=== PATIENT | female | born 1990 | race African-American/Black ===

== ENCOUNTER 2016-09-10 15:38 | Emergency (ER) | payer OTHER ==
[2016-09-10 15:42] VITALS: BP 110/66; PULSE 65; TEMP 97.9; BMI 22.6
--- NOTE | 2016-09-10 16:26 | PDOC ---
History of Present Illness - General Chief Complaint: Urinary Problem Stated Complaint: STD TESTING Time Seen by Provider: 09/10/16 16:24 History Source: Patient Exam Limitations: No Limitations - History of Present Illness Initial Comments: 09/10/16 17:54 Chief complaint: Patient here for STD testing and vaginal discharge History of present illness: Patient is a 26-year-old female with a history of bipolar disorder and asthma. Pt. is 3 para 1 abortions 2 today requesting STD testing patient reports having a foul-smelling vaginal discharge grayish white for the last few days and a strange sensation when urinating. Patient reports that she had an on 08/05/2016 and since then has had unprotected sex twice and they used the withdrawal method. Reports slight nausea. Patient denies any dysuria but has a strange sensation when urinating, no hematuria, urgency but has frequency. She is not on any kind of control. 09/10/16 19:05 09/10/16 19:10 Timing/Duration: getting worse Severity: mild Associated Symptoms: reports: other (vaginal discharge fowl smelling grayish white) Past History - Past Medical History Allergies/Adverse Reactions: Allergies Allergy/AdvReac Type Severity Reaction Status Date / Time chlorpromazine HCl Allergy Verified 09/10/16 15:39 [From Thorazine] Home Medications: Ambulatory Orders No Home Medications 0 dose .ROUTE UTDICT 02/09/14 Asthma: Yes - Psycho/Social/Smoking Cessation Hx Anxiety: No Suicidal Ideation: No Smoking Status: Yes Smoking History: Never smoked Have you smoked in the past 12 months: No Number of Cigarettes Smoked Daily: 7 Information on smoking cessation initiated: No Hx Alcohol Use: No Drug/Substance Use Hx: No Review of Systems - Review of Systems Able to Perform ROS?: Yes Constitutional: No: Symptoms Reported HEENTM: No: Symptoms Reported Respiratory: No: Symptoms reported Cardiac (ROS): No: Symptoms Reported ABD/GI: No: Symptoms Reported : Yes: Discharge (grayish white discharge vaginal ), Frequency, Other ( strange sensation per pt. when urinating, had 08/05/16, has had 2 episodes of unprotected sex). No: Burning, Dysuria, Flank Pain, Hematuria, Urgency, Lesions Musculoskeletal: No: Symptoms Reported Integumentary: No: Symptoms Reported Neurological: No: Symptoms reported *Physical Exam - Vital Signs Last Vital Signs Temp Pulse Resp BP Pulse Ox 97.9 F 65 17 110/66 100 09/10/16 15:40 09/10/16 15:40 09/10/16 15:40 09/10/16 15:40 09/10/16 15:40 - Physical Exam General Appearance: Yes: Appropriately Dressed Respiratory/Chest: positive: Lungs Clear, Normal Breath Sounds. negative: Chest Tender, Respiratory Distress Cardiovascular: positive: Regular Rhythm, Regular Rate, S1, S2 Female Pelvic Exam: positive: cervical os closed, normal adnexa, normal size ovaries, discharge (fowl smelling grayish white ). negative: CMT, lesions, Bartholin mass, Scalene Gland, adnexal tenderness Gastrointestinal/Abdominal: positive: Normal Bowel Sounds, Soft. negative: Tender, Organomegaly, Distended, Guarding, Rebound, Tenderness, Hepatomegaly, Spleenomegaly Medical Decision Making - Medical Decision Making 09/10/16 17:16 Patient is a 26-year-old female with a history of bipolar disorder. Pt. is 3 para 1 abortions 2 today requesting STD testing patient reports having a foul-smelling vaginal discharge grayish white for the last few days and a strange sensation when urinating. Patient reports that she had an on 08/05/2016 and since then has had unprotected sex twice and they used the withdrawal method. Reports slight nausea. Patient denies any dysuria but has a strange sensation when urinating, no hematuria, urgency but has frequency. She is not on any kind of control. unprotected sex vaginal discharge fowl smelling r/o STD, PLAN: urinalysis urine hcg urine for chlamydia/GC RPR 09/10/16 17:17 genital culture Laboratory Tests 09/10/16 09/10/16 16:30 16:30 Urine Color Ltyellow Urine Appearance Slcloudy Urine pH 6.0 Ur Specific Boutte 1.025 Urine Protein Negative Urine Glucose (UA) Negative Urine Ketones Negative Urine Blood Negative Urine Nitrite Negative Urine Bilirubin Negative Urine Urobilinogen Negative Ur Leukocyte Esterase Trace H Urine RBC 4 Urine WBC 5 Ur Epithelial Cells Moderate Urine Mucus Few Urine HCG, Qual Negative 09/10/16 17:58 Laboratory Tests 09/10/16 16:30 Urine HCG, Qual Positive Kelli From the lab called urine hCG previous was incorrect, urine HCG + for will treat for Possible gonorrhea with Rocephin 250 mg IM Will treat for possible chlamydia with azithromycin 1 g by mouth now 09/10/16 17:59 pt. to follow up with automobile appraiser 09/10/16 17:59 09/10/16 19:10 *DC/Admit/Observation/Transfer Diagnosis at time of Disposition: test positive, Unprotected sex - Discharge Dispostion Disposition: HOME Condition at time of disposition: Stable - Patient Instructions Additional Instructions: Follow up with WASTEWATER MANAGER as soon as possible We will call you if further treatment is needed due to pending labs No sexual intercourse until cleared by WASTEWATER MANAGER and use condoms always Patient voiced understanding of discharge instructions and all questions were answered
[2016-09-10 16:43] LABS: URINE APPEARANCE SLCLOUDY; URINE BILIRUBIN NEGATIVE (NEGATIVE); URINE BLOOD NEGATIVE (NEGATIVE); URINE COLOR LTYELLOW; URINE GLUCOSE (UA) NEGATIVE (NEGATIVE); URINE KETONE NEGATIVE (NEGATIVE); URINE NITRITE NEGATIVE (NEGATIVE); URINE PROTEIN NEGATIVE (NEGATIVE); URINE UROBILINOGEN NEGATIVE E.U./dl (0.2-1.0)
[2016-09-10 16:46] LABS: URINE LEUK ESTERASE TRACE (NEGATIVE)
[2016-09-10 16:48] LABS: URINE MUCUS FEW; URINE RBC 4 /hpf (0-3); URINE WBC 5 /hpf (3-5)
[2016-09-10] MEDS ORDERED: AZITHROMYCIN 1 GM PACKET PO ONE (17:16)
[2016-09-10] MEDS ORDERED: AZITHROMYCIN 1 GM PACKET ONE (17:36)
[2016-09-10] MEDS ORDERED: LIDOCAINE HCL 1%, 10 MG/ML (20ML VIAL) ONE (17:36)
== END 2016-09-10 19:10 | disposition home or self-care (01) ==
LOC: JERFT 15:38
DX: O26.891 Other specified pregnancy related conditions, first trimester (principal); Z20.2 Contact with and (suspected) exposure to infections with a predominantly sexual mode of transmission; Z3A.01 Less than 8 weeks gestation of pregnancy
CPT/HCPCS: 36415; 81003; 81015; 84703; 86593; 87070; 87205; 87491; 87591; 96372; 99281-25

== ENCOUNTER 2016-09-12 14:24 | Emergency (ER) | payer OTHER ==
[2016-09-12 14:42] VITALS: BP 108/59; PULSE 78; TEMP 98.1; BMI 22.6
--- NOTE | 2016-09-12 15:14 | PDOC ---
History of Present Illness - General Chief Complaint: ,Possible Stated Complaint: CRAMPS, POSSIBLE Time Seen by Provider: 09/12/16 14:59 History Source: Patient Exam Limitations: No Limitations - History of Present Illness Initial Comments: 09/12/16 15:09 My Chief Complaint: History of present illness: Patient is a 26-year-old female with a history of bipolar disorder and asthma. Pt. is 3 para 1 abortions 2 was here 2 days ago requesting STD testing and reported having a foul-smelling vaginal discharge grayish white for the last few days and a strange sensation when urinating. Pt.'s urine was positive for . Patient reports having an on 08/05/2016 and was 13 wks, 3 days gestation. Patient reports having unprotected sex twice since then but reports that he used to pull out method. Patient is requesting verification of again today. Patient was upset that test on 09/10/16 positive. Patient left in a hurry,had a ride waiting, was not washed out of fast track by staff here. Market Analyst was here that day in saw the patient. She was told to follow up with her FORM SETTER/DRIVER as soon as possible and to use protection with condoms. She was treated prophylactically for chlamydia and gonorrhea. Patient's genital culture was normal kurtis from 04/2017. She denies any urinary frequency urgency or hematuria. Patient reports that vaginal discharge is less than 2 days ago. Patient also reports that she does not have a strange sensation she did when she urinated 2 days ago prior to treatment here for chlamydia and gonorrhea prophylactically. 09/12/16 15:11 09/12/16 15:24 09/12/16 15:24 09/12/16 15:25 09/12/16 15:29 09/12/16 15:29 09/12/16 16:41 09/12/16 17:14 09/12/16 17:15 Associated Symptoms: reports: denies symptoms Past History - Past Medical History Allergies/Adverse Reactions: Allergies Allergy/AdvReac Type Severity Reaction Status Date / Time chlorpromazine HCl Allergy Verified 09/12/16 14:38 [From Thorazine] Home Medications: Ambulatory Orders No Home Medications 0 dose .ROUTE UTDICT 02/09/14 Asthma: Yes - Immunization History Immunization Up to Date: Yes - Psycho/Social/Smoking Cessation Hx Anxiety: No Suicidal Ideation: No Smoking Status: Yes Smoking History: Never smoked Have you smoked in the past 12 months: No Number of Cigarettes Smoked Daily: 5 Information on smoking cessation initiated: No Hx Alcohol Use: No Drug/Substance Use Hx: No Review of Systems - Review of Systems Able to Perform ROS?: Yes Constitutional: No: Symptoms Reported HEENTM: No: Symptoms Reported Respiratory: No: Symptoms reported Cardiac (ROS): No: Symptoms Reported ABD/GI: No: Symptoms Reported : Yes: Other (wants repeat test) Musculoskeletal: No: Symptoms Reported Integumentary: No: Symptoms Reported Neurological: No: Symptoms reported *Physical Exam - Vital Signs Last Vital Signs Temp Pulse Resp BP Pulse Ox 98.1 F 78 20 108/59 100 09/12/16 14:38 09/12/16 14:38 09/12/16 14:38 09/12/16 14:38 09/12/16 14:38 - Physical Exam General Appearance: Yes: Appropriately Dressed Respiratory/Chest: positive: Lungs Clear, Normal Breath Sounds. negative: Chest Tender, Respiratory Distress Cardiovascular: positive: Regular Rhythm, Regular Rate, S1, S2 Gastrointestinal/Abdominal: positive: Normal Bowel Sounds, Soft. negative: Tender, Organomegaly, Distended, Guarding, Rebound, Tenderness, Hepatomegaly, Spleenomegaly Integumentary: positive: Normal Color Neurologic: positive: Alert, Normal Response, Responsive Medical Decision Making - Medical Decision Making 09/12/16 16:42 Patient is a 26-year-old female with a history of bipolar disorder and asthma. Pt. is 3 para 1 abortions 2 was here 2 days ago requesting STD testing and reported having a foul-smelling vaginal discharge grayish white for the last few days and a strange sensation when urinating. Pt.'s urine was positive for . Patient reports having an on 08/05/2016 and was 13 wks, 3 days gestation. Patient reports having unprotected sex twice since then but reports that he used to pull out method. Patient is requesting verification of again today. Patient was upset that urine test on 09/10/16 positive. Patient left in a hurry,had a ride waiting, was not washed out of fast track by staff here. Market Analyst was here that day in saw the patient. She was told to follow up with her FORM SETTER/DRIVER as soon as possible and to use protection with condoms. She was treated prophylactically for chlamydia and gonorrhea. Patient's genital culture was normal kurtis from 06/10/2017. She denies any urinary frequency, urgency or hematuria. Patient reports that vaginal discharge is less than 2 days ago. Patient also reports that she does not have a strange sensation she did when she urinated 2 days ago prior to treatment here for chlamydia and gonorrhea prophylactically. Laboratory Tests 09/12/16 09/12/16 15:20 15:20 Beta HCG, Quant 16.6 Serum , Qual Positive 09/12/16 17:14 09/12/16 17:15 09/12/16 17:15 *DC/Admit/Observation/Transfer Diagnosis at time of Disposition: Positive blood test - Discharge Dispostion Disposition: HOME Condition at time of disposition: Stable - Patient Instructions Additional Instructions: Return in 2 days for beta HCG Encourage patient to continue to use protection with condoms if sexually active keep follow-up appointment with her FORM SETTER/DRIVER at the end of the month Patient voiced understanding of discharge instructions and will questions were answered
== END 2016-09-12 17:29 | disposition home or self-care (01) ==
LOC: JERFT 14:24
DX: Z32.01 Encounter for pregnancy test, result positive (principal)
CPT/HCPCS: 36415; 84702; 84703; 99281-25

== ENCOUNTER 2016-09-14 17:16 | Emergency (ER) | payer OTHER ==
[2016-09-14 17:27] VITALS: BP 122/69; PULSE 81; TEMP 97.9; BMI 21.1
--- NOTE | 2016-09-14 19:18 | PDOC ---
*Physical Exam - Vital Signs Last Vital Signs Temp Pulse Resp BP Pulse Ox 97.9 F 81 20 122/69 99 09/14/16 17:21 09/14/16 17:21 09/14/16 17:21 09/14/16 17:21 09/14/16 17:21 - Physical Exam General Appearance: Yes: Appropriately Dressed. No: Apparent Distress Respiratory/Chest: positive: Normal Breath Sounds Gastrointestinal/Abdominal: positive: Soft. negative: Normal Bowel Sounds, Tender, Organomegaly ED Treatment Course - ADDITIONAL ORDERS Additional order review: Laboratory Results 09/14/16 17:50 Beta HCG, Quant 13.2 Progress Note - Progress Note Progress Note: PT RETURN TODAY FOR REPEAT BHCG POST AB OF 08/15/2016; TENDING DOWNWARD; REVIEW OF RECENT LABS= NEGATIVE;NO NEW TX NEEDED Medical Decision Making - Medical Decision Making 09/14/16 19:16 WILL REFER TO EQUITY STRUCTURER NEXT WEEK; NO SYMPTOMS TODAY *DC/Admit/Observation/Transfer Diagnosis at time of Disposition: test positive - Discharge Dispostion Disposition: HOME Condition at time of disposition: Stable Admit: No
== END 2016-09-14 20:21 | disposition home or self-care (01) ==
LOC: JERFT 17:16
DX: Z32.01 Encounter for pregnancy test, result positive (principal)
CPT/HCPCS: 36415; 84702; 99281-25

== ENCOUNTER 2018-10-29 20:44 | Emergency (ER) | payer OTHER ==
[2018-10-29 20:53] VITALS: BP 139/112; PULSE 98; TEMP 98.6; BMI 20.3
--- NOTE | 2018-10-29 20:57 | PDOC ---
Rapid Medical Evaluation Medical Evaluation: Allergies Allergy/AdvReac Type Severity Reaction Status Date / Time chlorpromazine HCl Allergy Verified 09/14/16 17:20 [From [facility]] I have performed a brief in-person evaluation of this patient. The patient presents with a chief complaint of: c/o generalized itchy rash x 2- 3 weeks; denies fever, recent travel, use of new products; saw PCP around 2-3 weeks ago and was given Mometasone which did not help much Pertinent physical exam findings: scattered lesions, diffuse, no urticaria, no vesicular lesions, no petechiae I have ordered the following: Nothing The patient will proceed to the ED for further evaluation. 10/29/18 20:50
--- NOTE | 2018-10-29 21:33 | PDOC ---
History of Present Illness - General Chief Complaint: Rash Stated Complaint: ITCHY SKIN Time Seen by Provider: 10/29/18 20:50 - History of Present Illness Initial Comments: 10/29/18 21:30 28-year-old female without comorbidities presents for evaluation of rash 2 weeks without systemic symptoms. 10/29/18 21:30 Past History - Past Medical History Allergies/Adverse Reactions: Allergies Allergy/AdvReac Type Severity Reaction Status Date / Time chlorpromazine HCl Allergy Verified 10/29/18 20:50 [From Thorazine] Home Medications: Ambulatory Orders Permethrin 5% Topical Cream [Elimite -] 1 applic TP ONCE #1 tube 10/29/18 Asthma: Yes COPD: No - Immunization History Immunization Up to Date: Yes - Suicide/Smoking/Psychosocial Hx Smoking Status: Yes Smoking History: Never smoked Have you smoked in the past 12 months: Yes Number of Cigarettes Smoked Daily: 5 Hx Alcohol Use: No Drug/Substance Use Hx: Yes (cocaine) Review of Systems - Review of Systems Integumentary: Yes: Pruritus, Rash *Physical Exam - Vital Signs Last Vital Signs Temp Pulse Resp BP Pulse Ox 98.6 F 98 H 18 139/112 H 98 10/29/18 20:51 10/29/18 20:51 10/29/18 20:51 10/29/18 20:51 10/29/18 20:51 - Physical Exam Comments: 10/29/18 21:30 There is a diffuse macular rash on bilateral upper and lower extremities with interdigital involvement on the toes and hands as well as on the torso and underneath the breast. This examination was done with female nurse in the room. Moderate Sedation - Procedure Monitoring Vital Signs: Procedure Monitoring Vital Signs Temperature 98.6 F 10/29/18 20:51 Pulse Rate 98 H 10/29/18 20:51 Respiratory Rate 18 10/29/18 20:51 Blood Pressure 139/112 H 10/29/18 20:51 O2 Sat by Pulse Oximetry (%) 98 10/29/18 20:51 *DC/Admit/Observation/Transfer Diagnosis at time of Disposition: Scabies - Discharge Dispostion Disposition: HOME Condition at time of disposition: Stable Decision to Admit order: No - Prescriptions Prescriptions: Permethrin 5% Topical Cream [Elimite -] 1 applic TP ONCE #1 tube - Referrals Referrals: Annalise Lundberg MD [Primary Care Provider] - - Patient Instructions Printed Discharge Instructions: Scabies, DI for Scabies Additional Instructions: Follow-up with your primary care physician in one to 2 days for further evaluation and treatment options. Please use the soap as directed. Return to the emergency room for worsening symptoms. - Post Discharge Activity
== END 2018-10-29 21:38 | disposition home or self-care (01) ==
LOC: JERFT 20:44
DX: B86 Scabies (principal)
CPT/HCPCS: 99281-25

== ENCOUNTER 2019-03-02 15:20 | Emergency (ER) | payer OTHER ==
[2019-03-02 15:24] VITALS: BP 130/86; PULSE 84; TEMP 98.1; BMI 20.3
[2019-03-02] MEDS ORDERED: IBUPROFEN 600 MG TABLET (FP) PO ONE ×2 (15:38→15:48)
[2019-03-02] MEDS ORDERED: LIDOCAINE VISCOUS 2% ORAL/TOP 20 ML UNIT-DOSE CUP MM ONE (15:42)
--- NOTE | 2019-03-02 15:44 | PDOC ---
History of Present Illness - General Chief Complaint: Toothache Stated Complaint: TOOTHACHE Time Seen by Provider: 03/02/19 15:27 History Source: Patient Exam Limitations: No Limitations Past History - Past Medical History Allergies/Adverse Reactions: Allergies Allergy/AdvReac Type Severity Reaction Status Date / Time chlorpromazine HCl Allergy Verified 03/02/19 15:24 [From Thorazine] Home Medications: Ambulatory Orders NK [No Known Home Medication] 03/02/19 Asthma: Yes COPD: No - Immunization History Immunization Up to Date: Yes - Suicide/Smoking/Psychosocial Hx Smoking Status: Yes Smoking History: Never smoked Have you smoked in the past 12 months: Yes Number of Cigarettes Smoked Daily: 5 Hx Alcohol Use: No Drug/Substance Use Hx: Yes (cocaine) *Physical Exam - Vital Signs Last Vital Signs Temp Pulse Resp BP Pulse Ox 98.1 F 84 18 130/86 99 03/02/19 15:22 03/02/19 15:22 03/02/19 15:22 03/02/19 15:22 03/02/19 15:22 - Physical Exam General Appearance: No: Apparent Distress HEENT: positive: Pharynx Normal, Other (tooth #31 chipped, no gum swelling, no evidence of abscess) Integumentary: positive: Normal Color Neurologic: positive: Alert, Normal Mood/Affect Medical Decision Making - Medical Decision Making 29 y/o F with no sig pmh presents with R lower molar toothache x 1 month. States has a dentist and went to see dentist last month, but they were unable to see her as her Medicaid had lapsed. States her pain was minimal at the time; pain got worse today. Has not tried anything yet for pain. Denies fever, throat pain,sob, cp, abd pain, n/v R molar tooth chipped Plan: Motrin, Viscous lidocaine 03/02/19 15:44 *DC/Admit/Observation/Transfer Diagnosis at time of Disposition: Chipped tooth Qualifiers: Encounter type: initial encounter Fracture type: closed Qualified Code(s): S02.5XXA - Fracture of tooth (traumatic), initial encounter for closed fracture - Discharge Dispostion Disposition: HOME Condition at time of disposition: Stable Decision to Admit order: No - Referrals - Patient Instructions Printed Discharge Instructions: DI for Fractured Tooth Additional Instructions: Thank you for choosing [facility]. It was a pleasure taking care of you. You may take Motrin 600 mg every 6 hours by mouth as needed for mild to moderate pain. Take Motrin with food. Avoid eating food on the right side Follow-up in dental clinic for further evaluation Return to the Emergency Department if your symptoms worsen or persist or have other concerning symptoms. - Post Discharge Activity
[2019-03-02] MEDS ORDERED: LIDOCAINE VISCOUS 2% ORAL/TOP 20 ML UNIT-DOSE CUP ONE (15:52)
== END 2019-03-02 16:10 | disposition home or self-care (01) ==
LOC: JERFT 15:20
DX: S02.5XXA Fracture of tooth (traumatic), initial encounter for closed fracture (principal); X58.XXXA Exposure to other specified factors, initial encounter; Y93.89 Activity, other specified; Y92.038 Other place in apartment as the place of occurrence of the external cause; Y99.8 Other external cause status
CPT/HCPCS: 99281-25

== ENCOUNTER 2021-01-08 11:40 | Emergency (ER) | payer OTHER ==
[2021-01-08 12:46] VITALS: BMI 20.1
[2021-01-08 13:43] LABS: BASO % 1.1 % (0-2.0); EOS % 1.2 % (0-4.5); HEMATOCRIT 38.1 % (32.4-45.2); HEMOGLOBIN 12.9 GM/dL (10.7-15.3); LYMPH % 35.9 % (8-40); MCH 28.1 pg (25.7-33.7); MCHC 33.7 g/dl (32.0-36.0); MEAN CELL VOLUME 83.4 fl (80-96); MEAN PLT VOLUME 9.1 fl (7.5-11.1); MONO % 10.8 % (3.8-10.2); PLATELET COUNT 296 K/MM3 (134-434); RBC 4.57 M/mm3 (3.60-5.2); RDW 13.8 % (11.6-15.6); WHITE BLOOD COUNT 6.7 K/mm3 (4.0-10.0)
[2021-01-08 13:49] LABS: INR 1.22 (0.83-1.09); PROTHROMBIN TIME (PATIENT) 14.9 SEC (9.7-13.0)
[2021-01-08 13:52] LABS: ACTIVATED PTT 28.4 SECONDS (25.2-36.5)
[2021-01-08 13:57] LABS: CALCIUM 9.2 mg/dL (8.5-10.1)
[2021-01-08 13:58] LABS: ALBUMIN 4.2 g/dl (3.4-5.0); BLOOD UREA NITROGEN 6.4 mg/dL (7-18)
[2021-01-08 14:00] LABS: CREATININE 0.6 mg/dL (0.55-1.3)
[2021-01-08 14:02] LABS: BILIRUBIN,TOTAL 0.5 mg/dL (0.2-1); TOT PROT 7.5 g/dl (6.4-8.2)
[2021-01-08 16:07] VITALS: BP 93/71; PULSE 83; TEMP 97.9
== END 2021-01-08 16:23 | disposition home or self-care (01) ==
LOC: JER 11:40
DX: M79.641 Pain in right hand (principal); M25.522 Pain in left elbow; Z3A.01 Less than 8 weeks gestation of pregnancy
CPT/HCPCS: 36415; 76604; 76705-TC; 76815; 80053; 80307; 85025; 85610; 85730; 86850; 86900; 86901; 93005; 93010; 93308; 99284-25

== ENCOUNTER 2021-08-13 17:00 | Inpatient (IN) | payer OTHER ==
[2021-08-13 18:49] VITALS: BMI 22.9
[2021-08-13] MEDS ORDERED: BUTORPHANOL TARTRATE 1 MG/ML VIAL IVPB ONE (19:54)
[2021-08-13] MEDS: DEXTROSE 5%-LACTATED RINGERS 1,000 ML IV SCH (20:00)
[2021-08-13] MEDS ORDERED: OXYTOCIN 30 UNITS in 0.9% NS 30 UNIT/500 ML INFUS.BAG IVPB SCH (20:15)
[2021-08-13] MEDS ORDERED: OXYTOCIN 30 UNITS in 0.9% NS 30 UNIT/500 ML INFUS.BAG IVPB ONE (21:09)
[2021-08-13 21:26] LABS: BASO % 0.5 % (0-2.0); EOS % 0.5 % (0-4.5); HEMATOCRIT 34.9 % (32.4-45.2); HEMOGLOBIN 11.3 GM/dL (10.7-15.3); LYMPH % 26.8 % (8-40); MCH 24.9 pg (25.7-33.7); MCHC 32.4 g/dl (32.0-36.0); MEAN CELL VOLUME 76.8 fl (80-96); MEAN PLT VOLUME 9.4 fl (7.5-11.1); MONO % 10.9 % (3.8-10.2); NEUT % 61.3 % (42.8-82.8); PLATELET COUNT 186 10^3/uL (134-434); RBC 4.54 M/mm3 (3.60-5.2); RDW 15.5 % (11.6-15.6); WHITE BLOOD COUNT 7.3 K/mm3 (4.0-10.0)
[2021-08-13 21:39] LABS: INR 1.1 (0.83-1.09); PROTHROMBIN TIME (PATIENT) 12.3 SEC (9.7-13.0)
[2021-08-13 21:46] LABS: BLOOD UREA NITROGEN 7.2 mg/dL (7-18); CALCIUM 8.8 mg/dL (8.5-10.1)
[2021-08-13 21:50] LABS: CREATININE 0.5 mg/dL (0.55-1.3)
[2021-08-14] MEDS: DEXTROSE 5%-LACTATED RINGERS 1,000 ML IV SCH (11:32)
[2021-08-14] MEDS ORDERED: BUTORPHANOL TARTRATE 2 MG/ML VIAL ONE (11:46)
[2021-08-14] MEDS ORDERED: BUTORPHANOL TARTRATE 2 MG/ML VIAL IVPB ONE (12:00)
[2021-08-14] MEDS ORDERED: OXYTOCIN 20 UNITS in 0.9% NS 20 UNIT/1,000 ML INFUS.BAG IV ONE ×2 (14:20→16:52)
[2021-08-14] MEDS ORDERED: IBUPROFEN 600 MG TABLET (FP) PO ONE (15:00)
[2021-08-14] MEDS ORDERED: ACETAMINOPHEN 325 MG TABLET (FP) PO PRN (15:07)
[2021-08-14] MEDS ORDERED: BENZOCAINE 20% 57 GM BOTTLE TP PRN (15:07)
[2021-08-14] MEDS ORDERED: oxyCODONE HCL 5 MG TABLET PO PRN (15:07)
[2021-08-14] MEDS ORDERED: WITCH HAZEL 50% (TUCKS) 40 PAD/JAR PAD TP PRN (15:07)
[2021-08-14] MEDS ORDERED: BENZOCAINE 28 GM HEMORRHOIDAL OINTMENT TP PRN (15:07)
[2021-08-14] MEDS ORDERED: BISACODYL 10 MG SUPP.RECT RC PRN (15:07)
[2021-08-14] MEDS ORDERED: METHYLERGONOVINE MALEATE 0.2 MG/1 ML AMP IM PRN (15:07)
[2021-08-14] MEDS: IBUPROFEN 600 MG TABLET (FP) PO PRN ×2 (15:15→23:58)
[2021-08-14 15:16] LABS: CORD BASE EXCESS -2.5 mmol/L (0-2); CORD BASE EXCESS -3.6 mmol/L (0-2); CORD HCO3 23.1 mmHg (20-29); CORD HCO3 23.3 mmHg (20-29); CORD PCO2 47.7 mmHg (30-78); CORD pH 7.303 (7.14-7.44); CORD pH 7.342 (7.14-7.44)
[2021-08-14] MEDS: OXYTOCIN 20 UNITS in 0.9% NS 20 UNIT/1,000 ML INFUS.BAG IV SCH ×2 (15:25→16:57)
[2021-08-14] MEDS ORDERED: ACETAMINOPHEN INJECTION 100 ML IVPB ONE (16:31)
[2021-08-14] MEDS ORDERED: ACETAMINOPHEN 1000 MG/100 ML VIAL IVPB ONE (16:40)
[2021-08-14] MEDS ORDERED: METHYLERGONOVINE MALEATE 0.2 MG/1 ML AMP IM STA (16:44)
[2021-08-14 19:24] LABS: BASO % 0.5 % (0-2.0); EOS % 0.4 % (0-4.5); HEMOGLOBIN 11.2 GM/dL (10.7-15.3); MCH 25.4 pg (25.7-33.7); MCHC 32.9 g/dl (32.0-36.0); MEAN CELL VOLUME 77.3 fl (80-96); MEAN PLT VOLUME 9.5 fl (7.5-11.1); MONO % 9.8 % (3.8-10.2); NEUT % 74.3 % (42.8-82.8); PLATELET COUNT 170 10^3/uL (134-434); RDW 15.3 % (11.6-15.6); WHITE BLOOD COUNT 8.5 K/mm3 (4.0-10.0)
[2021-08-14] MEDS: METHYLERGONOVINE MALEATE 0.2 MG TABLET (FP) PO SCH ×2 (21:14→21:15)
[2021-08-15] MEDS: METHYLERGONOVINE MALEATE 0.2 MG TABLET (FP) PO SCH (01:34)
[2021-08-15] MEDS: FERROUS SO4 325 MG TABLET (FP) PO SCH ×3 (07:18→17:55)
[2021-08-15 08:04] LABS: BASO % 0.4 % (0-2.0); HEMATOCRIT 28.6 % (32.4-45.2); HEMOGLOBIN 9.6 GM/dL (10.7-15.3); LYMPH % 27.4 % (8-40); MCHC 33.5 g/dl (32.0-36.0); MEAN CELL VOLUME 77.6 fl (80-96); MEAN PLT VOLUME 9.5 fl (7.5-11.1); MONO % 12.5 % (3.8-10.2); NEUT % 58.7 % (42.8-82.8); PLATELET COUNT 156 10^3/uL (134-434); RBC 3.68 M/mm3 (3.60-5.2); RDW 15.2 % (11.6-15.6); WHITE BLOOD COUNT 7.2 K/mm3 (4.0-10.0)
[2021-08-15] MEDS: PRENATAL VITAMINS W/ FOLIC ACID TABLET (FP) PO SCH (09:47)
[2021-08-15] MEDS: IBUPROFEN 600 MG TABLET (FP) PO PRN (14:11)
[2021-08-15] MEDS ORDERED: SENNOSIDES/DOCUSATE COMBO (SENNA PLUS) TABLET (UD) PO PRN (22:00)
[2021-08-16] MEDS: FERROUS SO4 325 MG TABLET (FP) PO SCH (09:10)
[2021-08-16] MEDS: IBUPROFEN 600 MG TABLET (FP) PO PRN (09:10)
[2021-08-16] MEDS: PRENATAL VITAMINS W/ FOLIC ACID TABLET (FP) PO SCH (09:10)
[2021-08-16 11:13] VITALS: BP 111/72; PULSE 90; TEMP 98
== END 2021-08-16 12:35 | disposition home or self-care (01) | DRG 806 ==
LOC: JDEL 17:00 → JLDR 18:35 → J3W 08-14 20:40
PROVIDERS: ADMIT Obstetrics & Gynecology; ATTEND Obstetrics & Gynecology
PROC: 10E0XZZ Delivery of Products of Conception, External Approach (ICD-10-PCS; principal; 2021-08-14)
DX: O48.0 Post-term pregnancy (principal); O69.81X0 Labor and delivery complicated by cord around neck, without compression, not applicable or unspecified; O72.1 Other immediate postpartum hemorrhage; Z3A.40 40 weeks gestation of pregnancy; Z37.0 Single live birth
CPT/HCPCS: 36415; 36600; 59409; 80048; 82803; 85025; 85610; 85730; 86850; 86900; 86901; C9803; J0131; U0003; U0005

== ENCOUNTER 2022-07-18 12:10 | Emergency (ER) | payer OTHER ==
[2022-07-18 12:20] VITALS: BP 107/72; PULSE 92; RESP 20; TEMP 98.1; BMI 23.3
[2022-07-18 14:47] LABS: URINE APPEARANCE CLEAR; URINE BILIRUBIN NEGATIVE (NEGATIVE); URINE COLOR YELLOW; URINE GLUCOSE (UA) NEGATIVE (NEGATIVE); URINE KETONE NEGATIVE (NEGATIVE); URINE LEUK ESTERASE NEGATIVE (NEGATIVE); URINE NITRITE NEGATIVE (NEGATIVE); URINE PROTEIN NEGATIVE (NEGATIVE); URINE UROBILINOGEN 0.2 mg/dL (0.2-1.0)
[2022-07-18 15:06] LABS: HCG,QUALITATIVE URINE Positive
[2022-07-18 17:49] LABS: BASO % 0.6 % (0-2.0); EOS % 2.2 % (0-4.5); HEMOGLOBIN 12.7 GM/dL (10.7-15.3); MCH 25.9 pg (25.7-33.7); MCHC 32.7 g/dl (32.0-36.0); MEAN CELL VOLUME 79.3 fl (80-96); MEAN PLT VOLUME 8.9 fl (7.5-11.1); MONO % 9.8 % (3.8-10.2); NEUT % 54.4 % (42.8-82.8); PLATELET COUNT 262 10^3/uL (134-434); RBC 4.92 M/mm3 (3.60-5.2); RDW 14.4 % (11.6-15.6); WHITE BLOOD COUNT 6.2 K/mm3 (4.0-10.0)
[2022-07-18 18:09] LABS: CALCIUM 8.8 mg/dL (8.5-10.1)
[2022-07-18 18:10] LABS: ALBUMIN 3.4 g/dl (3.4-5.0); BLOOD UREA NITROGEN 10.6 mg/dL (7-18)
[2022-07-18 18:13] LABS: CREATININE 0.6 mg/dL (0.55-1.3)
[2022-07-18 18:15] LABS: BILIRUBIN,TOTAL 0.4 mg/dL (0.2-1); TOT PROT 6.9 g/dl (6.4-8.2)
== END 2022-07-18 19:25 | disposition home or self-care (01) ==
LOC: JERFT 12:10
DX: O26.892 Other specified pregnancy related conditions, second trimester (principal); R10.9 Unspecified abdominal pain; Z3A.15 15 weeks gestation of pregnancy
CPT/HCPCS: 36415; 76830-TC; 80053; 81003; 84702; 84703; 85025; 86850; 86900; 86901; 87086; 99284-25

== ENCOUNTER 2022-11-01 14:04 | Emergency (ER) | payer OTHER ==
[2022-11-01 14:12] VITALS: BP 107/56; RESP 16; TEMP 98.1; BMI 24.5
[2022-11-01 15:54] VITALS: PULSE 85
== END 2022-11-01 15:54 | disposition home or self-care (01) ==
LOC: JERFT 14:04
DX: R05.1 Acute cough (principal); R51.9 Headache, unspecified; J02.9 Acute pharyngitis, unspecified; Z11.2 Encounter for screening for other bacterial diseases
CPT/HCPCS: 0241U-QW; 99283-25